=== PATIENT | male | born 1950 | race Caucasian/White ===

== ENCOUNTER → 2016-09-18 | Outpatient (CLI) | payer OTHER ==
--- NOTE | 2016-09-18 16:56 | DX ---
Lumbar spine upright AP and lateral 1244 hours. History: Follow-up fusion. Findings: Comparison to July 09, 2016. Pedicle screws and paraspinal rods are once again seen from L2 through S1 in good position and alignm ent. Posterior interspinous process fusion plate is also noted between L5 and S1. Disk replacement ma terial is in stable position at L2-L3, L4-L5, and at L5-S1. Vertebral body heights are well-maintained. There are no subluxations. Mild intervertebral disk space narrowing is present at T12-L1 and at L1-L2. Laminectomy is identified at L2, L3, and L4 segment lev els. Impression: 1. Stable fusion from L2 through S1 as detailed above. 2. Stable mild disk space narrowing upper lumbar spine.
== END ==
LOC: FIMAGING 12:11
PROVIDERS: ATTEND Physician Assistant Surgical
DX: Z09 Encounter for follow-up examination after completed treatment for conditions other than malignant neoplasm (principal); Z98.1 Arthrodesis status

== ENCOUNTER → 2016-12-24 | Outpatient (CLI) | payer OTHER | LOC: FIMAGING 10:18 | PROVIDERS: ATTEND Physician Assistant Surgical | DX: M47.896 Other spondylosis, lumbar region (principal); Z98.1 Arthrodesis status ==

== ENCOUNTER 2017-03-11 11:32 | Inpatient (IN) | payer OTHER ==
--- NOTE | 2017-03-10 15:59 | GHP ---
[f rep st] PREOP HISTORY AND PHYSICAL DATE OF ADMISSION: 03/11/2017 PROBLEM: Left hip arthritis. HISTORY OF PRESENT ILLNESS: The patient is a 67-year-old man admitted for a left total hip arthropl asty. He has been experiencing progressive left hip pain for about 6 months. He does not have any pain in his right hip. He has discontinued playing tennis because of the pain. He had 2 operations on his spine last year. He has had previous cervical and lumbar fusions. He has had a total of 8 operations on his back. Because of progressive pain in his left hip and limitation of activities an d function, he will undergo a left total hip arthroplasty. PAST MEDICAL HISTORY: Overall, he is in good general health. He is treated for hypertension and el evated cholesterol. He also has some problems with chronic nasal congestion. No history of heart d isease, DVT, hepatitis, or sleep apnea. CURRENT MEDICATIONS: Crestor 40 mg per day, lisinopril 10 mg per day. He uses Singulair for his na belkis congestion. DRUG ALLERGIES: None. METAL ALLERGY: None. LATEX ALLERGY: None. 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 He does not smoke cigar ettes and occasionally drinks alcohol. He is . No history of previous MRSA staph infections . FAMILY HISTORY: Positive for cancer and heart disease. PHYSICAL EXAMINATION: GENERAL: He is an alert, healthy-appearing man. Height 6 feet, weight 180 p ounds. BMI 24.4. EYES: The conjunctivae and sclerae are clear. Pupils are round and reactive. M OUTH: Good oral hygiene. No loose teeth. CHEST: Clear. HEART: Regular rhythm. No murmurs. EX TREMITIES: Pertinent findings are limited to his left hip. He has full hip extension and 95 degree s of flexion. External rotation 20 degrees. Internal rotation 0 degrees. Abduction 20 degrees. IMAGING: His films show advanced degenerative arthritis of the left hip with cartilage space narrow ing and osteophyte formation. He has mild degenerative changes in his right hip. Hardware is prese nt in the lower lumbar spine. IMPRESSION ON ADMISSION: 1. Left hip advanced degenerative arthritis. 2. Right hip mild degenerative arthritis which is not symptomatic. 3. Status post multiple cervical and lumbar spine surgeries with spine fusions. 4. Treatment for elevated cholesterol. 5. Treatment for hypertension. PLAN: He will undergo a left total hip arthroplasty. The surgery has been described to him, includ ing the risks, complications, expectations, and recovery time. I have discussed with him the risk o f dislocation, leg length inequality, infection, and sciatic nerve injury. He understands there is a small chance he could need revision surgery in the future. All his questions have been answered, and he consents to surgery. /[id number]/MODL
[2017-03-11] MEDS ORDERED: POVIDONE-IODINE 20 ML in SODIUM CL IRRIG SOLUTION 500 ML IRR ONE (12:07)
[2017-03-11] MEDS ORDERED: ROPIVACAINE 0.2% 80 MG, EPINEPHrine 0.2 MG, KETOROLAC TROMETHAMINE 30 MG in BAG 0 ML IU ONE (12:07)
[2017-03-11] MEDS ORDERED: TRANEXAMIC ACID 1,720 MG in NS 100 ML IV ONE (12:07)
[2017-03-11] MEDS ORDERED: ceFAZolin 1 GM/5 ML SYR ONE (12:10)
[2017-03-11] MEDS ORDERED: LIDOCAINE 1% 2 ML INJ ONE (13:10)
[2017-03-11] MEDS ORDERED: ceFAZolin 2 GM/DEXTROSE 100 ML IV ONE (13:14)
[2017-03-11] MEDS ORDERED: ACETAMINOPHEN 325 MG TAB PO ONE (13:14)
[2017-03-11] MEDS ORDERED: DEXAMETHASONE 4 MG/ML VIAL IVP ONE (13:14)
[2017-03-11] MEDS ORDERED: FAMOTIDINE 20 MG TAB PO ONE (13:14)
--- NOTE | 2017-03-11 14:11 | PDHPUP ---
History & Physical Update H&P update statement: This history and physical update is based on an assessment of the patient which was completed after admission or registration (within 24 hours), but prior to the surgery/procedure. H&P update: H&P reviewed & patient examined, no change in patient's condition since H&P completed
[2017-03-11] MEDS ORDERED: MIDAZOLAM 2 MG/2 ML VIAL IVP ONE (14:29)
--- NOTE | 2017-03-11 14:43 | PDANEPAE ---
ANE Past Medical History - Cardiovascular History Hx Hypertension: Yes Hx Arrhythmias: No Hx Chest Pain: No Hx Coronary Artery / Peripheral Vascular Disease: Yes Hx CHF / Valvular Disease: No Hx Palpitations: No - Pulmonary History Hx COPD: No Hx Asthma/Reactive Airway Disease: No Hx Recent Upper Respiratory Infection: No Hx Oxygen in Use at Home: No Hx Sleep Apnea: No Sleep Apnea Screening Result - Last Documented: Positive - Neurologic History Hx Cerebrovascular Accident: No Hx Seizures: No Hx Dementia: No - Endocrine History Hx Diabetes: No Hypothyroid: No Hyperthyroid: No Obesity: no - Renal History Hx Renal Disorders: No - Liver History Hx Hepatic Disorders: No - Neurological & Psychiatric Hx Hx Neurological and Psychiatric Disorders: No - Cancer History Hx Cancer: No - Congenital Disorder History Hx Congenital Disorders: No - GI History Hx Gastrointestinal Disorders: No - Other Health History Other Health History: CHRONIC SINUSITIS - Chronic Pain History Chronic Pain: No - Surgical History Prior Surgeries: RT SHLDR SCOPE 02/2014. LUMBAR FUSION 2011. RT SHLDR SCOPE. LT ROTATOR CUFF. LUMBAR LAMINECTOMY 1993. CERVICAL FUSION &2002. RT ACHILLES TENDON REPAIR 2008 x3. EMMA KNEE SCOPE ANE Review of Systems Review of systems is: negative - Exercise capacity METS (RN): 4 METS ANE Patient History - Allergies Allergies/Adverse Reactions: No Known Allergies Allergy (Verified 07/09/16 13:38) - Home Medications Home Medications: Lisinopril [Zestril 10 mg (*)] 10 mg PO DAILY 10/17/11 [Last Taken 03/10/17] Rosuvastatin Calcium [Crestor 40mg (*)] 40 mg PO DAILY 10/17/11 [Last Taken ] Montelukast Sodium [Singulair 10 mg (*)] 10 mg PO DAILY@1800 02/21/14 [Last Taken 03/10/17] - NPO status NPO Since - Liquids (Date): 03/11/17 NPO Since - Liquids (Time): 06:30 NPO Since - Solids (Date): 03/10/17 NPO Since - Solids (Time): 19:00 - Smoking Hx Smoking Status: Never smoked - Family Anes Hx Family Hx Anesthesia Complications: none ANE Labs/Vital Signs - Vital Signs Blood Pressure: 148/77 Heart Rate: 57 Respiratory Rate: 16 O2 Sat (%): 95 Height: 182.88 cm Weight: 86.183 kg ANE Physical Exam - Airway Neck exam: decreased ROM, spinal fusion Mallampati Score: Class 2 Mouth exam: normal dental/mouth exam - Pulmonary Pulmonary: no respiratory distress, no rales or rhonchi, clear to auscultation - Cardiovascular Cardiovascular: bradycardia - ASA Status ASA Status: II ANE Anesthesia Plan Anesthesia Plan: MAC, spinal
[2017-03-11] MEDS ORDERED: ONDANSETRON 4 MG/2 ML VIAL ONE (14:46)
[2017-03-11] MEDS ORDERED: fentaNYL 100 MCG/2 ML INJ ONE ×3 (14:46→17:02)
[2017-03-11] MEDS ORDERED: PROPOFOL/EMULSION 500 MG/50 ML BOTTLE IV ONE (14:46)
[2017-03-11] MEDS ORDERED: LIDOCAINE 2% 5 ML SDV ONE (14:59)
[2017-03-11] MEDS ORDERED: PROMETHAZINE HCL 25 MG/ML INJ IVP PRN ×2 (15:50→17:09)
[2017-03-11] MEDS ORDERED: NALOXONE HCL 0.4 MG/ML INJ IVP PRN ×2 (15:50→17:26)
[2017-03-11] MEDS ORDERED: ONDANSETRON 4 MG/2 ML VIAL IVP PRN ×2 (15:50→17:09)
[2017-03-11] MEDS ORDERED: HYDROmorphONE/DILAUDID 1 MG/ML SYR IVP PRN (15:50)
[2017-03-11] MEDS ORDERED: fentaNYL 100 MCG/2 ML INJ IVP PRN ×2 (15:50)
[2017-03-11] MEDS ORDERED: HYDROCODONE/APAP 5/325 TAB PO PRN (15:50)
[2017-03-11] MEDS ORDERED: D5W LR 500 ML IV PRN (15:50)
[2017-03-11] MEDS ORDERED: ACETAMINOPHEN 500 MG TAB PO PRN (15:50)
[2017-03-11] MEDS ORDERED: OXYCODONE/APAP 5/325 TAB PO PRN (15:50)
[2017-03-11] MEDS ORDERED: KETOROLAC 30 MG/1 ML SDV ONE (16:39)
--- NOTE | 2017-03-11 16:55 | POSTOPPROG ---
Post Op Note Date of Operation: 03/11/17 Surgeon: Jame Okeefe Site Inspector: Wayne Barrera/Alvarado Murdock Anesthesiologist: Silvestre Hurt Anesthesia: GET(General Endotracheal) Post-op Diagnosis: Left hip severe degenerative arthritis Procedure: Left total hip arthroplasty Inf/Abcess present in the surg proc area at time of surgery?: No EBL: 100-500
[2017-03-11] MEDS ORDERED: PHARMACY PAIN CONSULT 1 EA MISC PRN (17:09)
[2017-03-11] MEDS ORDERED: BISACODYL 10 MG SUPP PR PRN (17:09)
[2017-03-11] MEDS ORDERED: CYCLOBENZAPRINE 10 MG TAB PO PRN (17:09)
[2017-03-11] MEDS ORDERED: KETOROLAC 30 MG/1 ML SDV IVP PRN (17:09)
[2017-03-11] MEDS ORDERED: PROMETHAZINE HCL 25 MG SUPPR PR PRN (17:09)
[2017-03-11] MEDS ORDERED: traMADol 50 MG TAB PO PRN (17:09)
[2017-03-11] MEDS ORDERED: POLYETHYLENE GLYCOL 3350 17 GM PKT PO PRN (17:09)
[2017-03-11] MEDS ORDERED: diphenhydrAMINE 25 MG CAP PO PRN (17:09)
[2017-03-11] MEDS ORDERED: MAGNESIUM HYDROXIDE 30 ML UDCUP PO PRN (17:09)
[2017-03-11] MEDS ORDERED: NS 500 ML IV PRN (17:09)
[2017-03-11] MEDS ORDERED: ONDANSETRON DISINTEGRATING 4 MG TAB PO PRN (17:09)
[2017-03-11] MEDS ORDERED: LACTULOSE 20 GM/30 ML UDCUP PO PRN (17:09)
[2017-03-11] MEDS ORDERED: TEMAZEPAM 15 MG CAP PO PRN (17:09)
[2017-03-11] MEDS ORDERED: DIPHENOXYLATE/ATROPINE LOMOTIL 1 TAB PO PRN (17:09)
[2017-03-11] MEDS ORDERED: METOCLOPRAMIDE 10 MG/2 ML VIAL IVP PRN (17:09)
[2017-03-11] MEDS ORDERED: MEPERIDINE 25 MG/ML SYR ONE (17:11)
[2017-03-11] MEDS ORDERED: HYDROmorphONE/DILAUDID 1 MG/ML SYR ONE (17:26)
[2017-03-11] MEDS ORDERED: LABETALOL HCL 50 MG/10 ML SYR IVP PRN (17:26)
--- NOTE | 2017-03-11 17:26 | POSTANESTH ---
Post Anesthetic Evaluation Cardiovascular Status: Tx Hyper/Hypo-tension Respiratory Status: Normal, Stable Level of Consciousness/Mental Status: Can Participate in Eval Pain Control: Inadeq, Add Tx Required Nausea/Vomiting Control: Adequate, Prn Tx Ordered Complications Possibly Related to Anesthesia: None Noted
[2017-03-11] MEDS: HYDROmorphONE/DILAUDID 1 MG/ML SYR IVP PRN ×3 (17:27→17:52)
[2017-03-11] MEDS ORDERED: LR 1,000 ML IV SCH (17:30)
--- NOTE | 2017-03-11 18:19 | GOP ---
[f rep st] OPERATIVE REPORT DATE OF OPERATION: 03/11/2017 SURGEON: Jame Okeefe MD COMPOUND COATING MACHINE OFFBEARER: ALYSON Guthrie CFA ANESTHESIA: General. ANESTHESIOLOGIST: Dr. Silvestre Hurt. PREOPERATIVE DIAGNOSIS: Left hip severe degenerative arthritis. POSTOPERATIVE DIAGNOSIS: Left hip severe degenerative arthritis. PROCEDURE PERFORMED: Left total hip arthroplasty. Ceramic femoral head on highly cross-linked poly ethylene cup liner. FINDINGS: DESCRIPTION OF PROCEDURE: The patient was given 2 g of preoperative IV Ancef within 60 minutes of s urgery. He also received IV tranexamic acid at a dose of 20 mg/kg. He was placed on the operating room table and Dr. Hurt attempted a spinal anesthetic. The patient has had multiple previous lumbar spine surgeries, and the spinal anesthetic was unsuccessful. He was then given general anes thesia. A Govea catheter was not used. He wore a THIAGO stocking and SCD on the nonoperative leg. He was rolled to the right lateral decubitus position. The position was secured with the pegboard tab le attachment. An axillary roll was used, and all pressure points were carefully padded. He had pr evious shoulder problems, and I was careful in how we positioned his shoulders. I was careful to lo ck his pelvis in a rigid vertical position. His perineum was isolated with plastic adhesive drapes. The left hip and left lower extremity were prepped with ChloraPrep. They were draped free using s terile sheets, stockinette, and Ioban plastic adhesive drape. The [employer] time-out was performed to verify the correct surgical side and site, a nd the correct patient identity. The [place] time-out was also performed. I made a 5-inch straight oblique posterolateral hip skin incision. Subcutaneous tissues were sharpl y divided, and hemostasis was obtained using electrocautery. The fascia rohini was identified and spl it along the axis of its fibers. I then curved posteriorly and proximally, and split the fascia of gluteus sara and bluntly split the muscle fibers in line with their orientation. The Charnley se lf-retaining retractor was inserted. His sciatic nerve was located, partially exposed, and protecte d throughout the procedure. The external rotators and the posterior hip capsule were divided as sep arate layers at the base of the femoral neck, tagged, and reflected posteriorly. A smooth 8-inch St einmann pin was inserted vertically in the ilium superior to the acetabulum. An 8-inch drill bit wa s inserted vertically into the greater trochanter and parallel to the first pin. The distance betwe en the 2 was measured for leg length reference. His femoral head was dislocated posteriorly. Very severe degenerative changes were present on the femoral head. His femoral neck was osteotomized at the appropriate level and inclination. I was able to preserve all the posterior capsule and most of the anterior capsule. The remnant of h is badly damaged labrum was excised. I prepared the femur first. This allowed me to tool machine set up operator the amount of natural femoral neck anteversion . This, in turn, allowed me to later determine the correct amount of cup anteversion. He had appro ximately 15 degrees of natural femoral neck anteversion. The canal was opened laterally with a box chisel. I then used the starter reamer on power. I then hand-broached up to size 5. The size 5 br oach was used as a trial stem. I was careful to lateralize adequately. Appropriate retractors were inserted to expose the acetabulum. The acetabulum was reamed sequential ly up to 55 mm. I selected a 56 mm Leonard Tritanium cluster hole hemispherical shell. The initial fixation was not that tight, so I went ahead and deepened the acetabulum another millimeter or 2. I then achieved good fixation. The 56 mm Wharton Tritanium cluster hole shell was tapped securely i nto place in the proper degree of inclination anteversion. I used the remnant of his transverse enrico tabular ligament and other acetabular bony landmarks to help me properly orient the cup. I inserted a single fixation screw through the shell. I also inserted a screw in the metal dome hole plug. At this point, I took intraoperative cross-table AP pelvis x-ray. Leg lengths look good. Position of the cup looks good. I thought that I could probably get 1 size larger femoral component in. I dara tracey went back and broached laterally, and was able get the 6 broach fully seated. I performed a ser ies of trial reductions to determine length and stability. I concluded that the size 6 stem with a 0 mm high offset neck, a 36 mm head and a 0-degree trial liner gave me the proper combination of lala ropriate length and good anterior and posterior stability. The flush or 0-degree Leonard X3 highly cross-linked polyethylene liner was inserted and tapped secu rely into place. The Leonard Accolade 2 stem in size 6 with high offset was inserted, press-fit and was very tight. I did 1 final trial reduction and confirmed that the 0 neck length with a 36 mm he ad was the proper combination. I selected the Wharton Biolox Delta ceramic head with an outside dm meter of 36 mm and a neck length of 0 mm. The head was tapped securely onto the clean trunnion. Th e acetabulum was irrigated, cleaned, and the hip was reduced 1 final time. He had excellent anterio r and posterior stability and appropriate length. Then, 40 mL of the joint anesthetic cocktail was injected into the capsule, the deep musculature, an d the subcutaneous tissues around the skin edges. The joint was thoroughly irrigated 1 final time w ith a dilute Betadine solution. His sciatic nerve was reinspected and looked unharmed. The externa l rotators and the posterior hip capsule were repaired in separate layers with #2 FiberWire sutures through drill holes in the greater trochanter. The fascia rohini was repaired first with a #2 figure- of-eight FiberWire suture, followed by a running #2 barbed Ethicon Stratafix PDO suture. The subcut aneous tissues were closed with a running 0 barbed Ethicon StrataFix Monoderm suture. The skin was closed with a running 3-0 barbed Ethicon Stratafix Monoderm subcuticular suture. The skin edges wer e reapproximated and sealed with Dermabond glue. The wound was covered with a strip of Telfa, and e verything was held in place with a piece of clear plastic Tegaderm. A long-leg THIAGO stocking and SCD were applied to his left lower extremity. He wore a stocking and SC D on the opposite leg during the procedure. An abduction pillow was placed between his knees. He w as awakened from anesthesia and rolled to the supine position on his [employer]. He was taken to PACU in satisfactory condition. There were no recognized intraoperative complications. The ignacio mated blood loss was about 500 mL. He bled more than normal. He bled particularly from the raw bon y surfaces of his acetabulum. The sponge and needle count were correct on 2 occasions. I used a Wharton Tritanium hemispherical press-fit cluster hole acetabular shell with an outside dm meter of 56 mm. The liner was a Leonard X3 0-degree highly cross-linked liner with an inside diamet er of 36 mm. The femoral component was a high offset Leonard Accolade 2 stem in size 6 and press-fi t. The femoral head was a Leonard Biolox Delta ceramic head with a 0 neck length and a 32 mm outsid e diameter. Wayne Barrera and Alvarado Murdock acted as surgical assistants. Their assistance was a medical neces sity for the safe completion of the procedure. /[id number]/MODL
[2017-03-11] MEDS: ACETAMINOPHEN 325 MG TAB PO SCH (18:46)
[2017-03-11] MEDS: ASPIRIN 325 MG TAB PO SCH (19:54)
[2017-03-11] MEDS: SENNOSIDES/DOCUSATE SODIUM TAB PO SCH (19:54)
[2017-03-11] MEDS: FAMOTIDINE 20 MG TAB PO SCH (19:54)
[2017-03-11 20:32] VITALS: RESP 16
[2017-03-11] MEDS: oxyCODONE IR 5 MG TAB PO PRN (21:49)
[2017-03-11] MEDS: TRANEXAMIC ACID 650 MG TAB PO SCH (21:49)
[2017-03-12] MEDS: ACETAMINOPHEN 325 MG TAB PO SCH ×2 (00:05→04:57)
[2017-03-12] MEDS: ceFAZolin 2 GM/DEXTROSE 100 ML IV SCH ×2 (00:07→05:51)
[2017-03-12] MEDS: oxyCODONE IR 5 MG TAB PO PRN ×2 (02:29→08:11)
[2017-03-12] MEDS: TRANEXAMIC ACID 650 MG TAB PO SCH (04:57)
[2017-03-12 05:25] LABS: HEMATOCRIT 29.9 % (40.0-51.0); HEMOGLOBIN 10.1 g/dL (13.7-17.5)
[2017-03-12] MEDS: ASPIRIN 325 MG TAB PO SCH (08:10)
[2017-03-12] MEDS: SENNOSIDES/DOCUSATE SODIUM TAB PO SCH (08:11)
[2017-03-12] MEDS: FAMOTIDINE 20 MG TAB PO SCH (08:11)
[2017-03-12 08:25] VITALS: BP 113/57; PULSE 78; TEMP 99.4; O2SAT 91
[2017-03-12] MEDS ORDERED: FERROUS SULFATE 140 MG TAB.ER PO SCH (09:00)
[2017-03-12] MEDS ORDERED: oxyCODONE IR 5 MG TAB PO PRN (09:06)
--- NOTE | 2017-03-12 09:32 | SOAPPROG ---
SOAP Progress Note Assessment/Plan: Asses afebrile. Awake and alert. He has been walking in the [place]. He has a moderate buttocks hematoma. His dressing is dry. H&H is low but satisfactory. Postop films look excellent. His sciatic nerve is intact. Plan: Physical therapy today. Discharged later today. 03/12/17 09:30 Objective: Vital Signs Temp Pulse Resp BP Pulse Ox 37.4 C 78 16 113/57 L 91 L 03/12/17 08:00 03/12/17 08:00 03/12/17 08:00 03/12/17 08:00 03/12/17 08:00 Laboratory Results 03/12/17 04:23 03/11/17 03/12/17 03/13/17 05:59 05:59 05:59 Intake Total 525 Output Total 275 Balance 250 ICD10 Worksheet Patient Problems: Problems Problem Status Onset Osteoarthritis of left hip Acute Lumbar stenosis Acute
--- NOTE | 2017-03-12 14:46 | GDS ---
[f rep st] DISCHARGE SUMMARY ADMITTING DIAGNOSES: Left hip degenerative arthritis. DISCHARGE DIAGNOSIS: Left hip degenerative arthritis. PROCEDURE PERFORMED: On 03/11/2017, a left total hip arthroplasty. POSTOPERATIVE COMPLICATIONS: None. CONDITION ON DISCHARGE: Improved. DESCRIPTION OF HOSPITAL COURSE: The patient was admitted to the hospital on the morning of surgery. His admission CBC was normal. The same day, under general anesthesia, he underwent a left total h ip arthroplasty. Postoperatively, he was treated with multimodal DVT prophylaxis, including aspirin . On the first postoperative day his hemoglobin and hematocrit were 10.1 and 29.9. [facility] and made good progress with ambulation and stairs. He developed a moderate buttocks h ematoma. There were no other postoperative complications. By the time of discharge, he was afebrile, comfortable and independent walking with a walker partial weightbearing on the left. DISPOSITION: The patient is discharged to his home. DISCHARGE INSTRUCTIONS: He may progress to full weightbearing on the left as tolerated. He will go to outpatient physical therapy next week. He has prescriptions for oxycodone and tramadol for pain control. Continue aspirin 325 mg p.o. daily for 21 days. I will see him back in the office on Mar. Continue THIAGO stockings for 1 week. If there are any problems, he is to call me at [facility] office. /[id number]/MODL
[2017-03-12] MEDS ORDERED: MONTELUKAST SODIUM 10 MG TAB PO SCH (18:00)
[2017-03-13] MEDS ORDERED: LISINOPRIL 10 MG TAB PO SCH (09:00)
[2017-03-13] MEDS ORDERED: ROSUVASTATIN CALCIUM 40 MG TAB PO SCH (09:00)
== END 2017-03-12 11:31 | disposition home or self-care (01) | DRG 470 ==
LOC: F3N 11:32
PROVIDERS: ADMIT Orthopaedic Surgery; ATTEND Orthopaedic Surgery
PROC: 0SRB04Z Replacement of Left Hip Joint with Ceramic on Polyethylene Synthetic Substitute, Open Approach (ICD-10-PCS; principal; 2017-03-11 14:30)
DX: M16.12 Unilateral primary osteoarthritis, left hip (principal); I10 Essential (primary) hypertension; E78.00 Pure hypercholesterolemia, unspecified; Z98.1 Arthrodesis status
CPT/HCPCS: 97116-GP; 97161-GP; 97165-GO; 97530-GP; C1713; G8978-GP-CI; G8979-GP-CI; G8980-GP-CI; G8987-GO-CI; G8988-GO-CI; G8989-GO-CI; J0171; J0690; J1100; J1170; J1885; J2250; J2405; J2704; J2795; J3010

== ENCOUNTER 2017-04-14 10:23 | Emergency (ER) | payer OTHER ==
[2017-04-14] MEDS ORDERED: HYDROmorphONE/DILAUDID 1 MG/ML SYR IVP ONE ×2 (10:44→11:08)
--- NOTE | 2017-04-14 10:45 | EDPHY ---
H & P Stated Complaint: L Hip Pain Time Seen by Provider: 04/14/17 10:43 - Personal History Current Tetanus Diphtheria and Acellular Pertussis (TDAP): Yes Tetanus Vaccine Date: WITHIN - Medical/Surgical History Hx Asthma: No Hx Chronic Respiratory Disease: No Hx Diabetes: No Hx Cardiac Disease: Yes Hx Renal Disease: No Hx Cirrhosis: No Hx Alcoholism: No Hx HIV/AIDS: No Hx Splenectomy or Spleen Trauma: No Other PMH: 8 back surgery, HTN, Hyperlip, L Hip Replacement 2016 - Social History Smoking Status: Never smoked Constitutional: Initial Vital Signs Temperature (C) 36.9 C 04/14/17 10:32 Heart Rate 72 04/14/17 10:32 Respiratory Rate 18 04/14/17 10:32 Blood Pressure 181/100 H 04/14/17 10:32 O2 Sat (%) 99 04/14/17 10:32 O2 Delivery Mode [Procedural Nasal Cannula 7th] O2 Delivery Mode [Post Room Air Procedure 3rd] O2 Delivery Mode [Post Room Air Procedure 2nd] O2 Delivery Mode [Post Room Air Procedure 1st] O2 Delivery Mode [Procedural Bag Valve Mask 6th] O2 Delivery Mode [Procedural Bag Valve Mask 5th] O2 Delivery Mode [Procedural Non-Rebreather Mask 4th] O2 Delivery Mode [Procedural Non-Rebreather Mask 3rd] O2 Delivery Mode [Procedural Non-Rebreather Mask 2nd] O2 Delivery Mode [Procedural Non-Rebreather Mask 1st] O2 Delivery Mode [.Immediate Non-Rebreather Mask Pre-Procedure] O2 Delivery Mode Room Air O2 (L/minute) [Procedural 7th] 6 O2 (L/minute) [Procedural 4th] 15 O2 (L/minute) [Procedural 3rd] 15 O2 (L/minute) [Procedural 2nd] 15 O2 (L/minute) [Procedural 1st] 15 O2 (L/minute) [.Immediate Pre- 15 Procedure] O2 (L/minute) 15 Allergies/Adverse Reactions: No Known Allergies Allergy (Verified 07/09/16 13:38) Home Medications: Medication Instructions Recorded Lisinopril [Zestril 10 mg (*)] 10 mg PO DAILY 10/17/11 Rosuvastatin Calcium [Crestor 40mg 40 mg PO DAILY 10/17/11 (*)] Montelukast Sodium [Singulair 10 10 mg PO DAILY@1800 02/21/14 mg (*)] Ibuprofen [Motrin (*)] 800 mg PO TID PRN 03/11/17 Multivitamin with Minerals 1 each PO DAILY 03/11/17 [Multiple Vitamin] Acetaminophen [Tylenol 325mg (*)] 650 mg PO Q6HRS #0 tab 03/12/17 Medical Decision Making - Diagnostics Imaging: Discussed imaging studies w/ call center recruiter Radiologist, I viewed and interpreted images myself ED Course/Re-evaluation: CHIEF COMPLAINT: Left hip dislocation HISTORY OF PRESENT ILLNESS: The patient is a 67 y/o male who arrives via EMS after a left hip pain and dislocation. He had a hip replacement surgery 5 weeks ago and has been recovering well at home with improving flexibility. Today, he bent over to tie shoe his shoe and his left hip popped out. He had immediate pain at the site and continues to have severe pain here. He denies any trauma or other injuries. Denies weakness, paresthesias, incontinence, or other symptoms. REVIEW OF SYSTEMS: A 10 point review of systems was performed and is negative with the exception of the elements mentioned in the history of present illness. PHYSICAL EXAM: HR, BP, O2 Sat, RR. Temp noted General Appearance: Alert, well hydrated, appropriate, and non-toxic appearing. Head: Atraumatic without scalp tenderness or obvious injury Eyes: Pupils equal, round, reactive to light and accommodation, EOMI, no trauma , no injection. Nose: Atraumatic, no rhinorrhea, clear. Throat: Mucus membranes moist. Neck: Supple Respiratory: No retractions, no distress, no wheezes, and no accessory muscle use. Lungs are clear to auscultation bilaterally. Cardiovascular: Regular rate and rhythm, no murmurs, rubs, or gallops. Bilateral dorsalis pedis and posterior tibial pulses intact. Good capillary refill all extremities. Gastrointestinal: Abdomen is soft, nontender, non-distended, no masses, no rebound, no guarding, no peritoneal signs. Musculoskeletal: Left leg is shortened and externally rotated. Otherwise normal active ROM of all extremities, atraumatic. Neurological: Alert, appropriate, and interactive. The patient has normal DTRs and non-focal cranial nerves, motor, sensory, and cerebellar exam. Skin: No rashes, good turgor, no nodules on palpation. Past medical history: Cardiac disease, hypertension, hyperlipidemia Past surgical history: Left hip replacement 03/12/17, 2 cervical fusions Family history: Noncontributory Social history: at bedside, non-smoker, lives in [place]. 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 Prior medical records reviewed including admission 03/11/17 for hip replacement. DIAGNOSTICS/PROCEDURES/CRITICAL CARE TIME: Pelvis and hip x-rays: posterior left prosthetic hip dislocation. Procedure: Conscious sedation. Indication: Hip dislocation reduction The patient is an appropriate candidate to tolerate procedural sedation. The patient's vitals signs and mental status are appropriate. The risks, benefits and alternatives of the sedation were discussed with the patient. The patient is ASA classification 1. The patient's Mallampati airway score was 1 and the patient did meet the 3-3-2 airway measurements. A time out was completed. The patient was sedated with 50mg IV Ketamine and 90mg IV Propofol. The patient was monitored with continuous pulse oximetry, telemetry monitor and end tidal CO2. There were no complications and no significant hypoxemia. I performed both the sedation and the procedure. The total time I spent at the bedside during the procedural sedation was 30 minutes. The patient was examined after the procedural sedation and has returned to their pre-sedation baseline with normal vital signs and a normal examination. Procedure: Reduction of Dislocated Hip Time-out completed immediately before the procedure. IV established. O2 administered. Placed on pulse oximeter and ETCO2 monitor. Neurovascular exam intact pre-procedure. Given 50mg IV Ketamine for pain and 90mg IV Propofol for sedation. The left hip was not successfully reduced using traction- countertraction. Reassessed post-procedure. Neurovascular status intact with intact sciatic nerve function and lower extremity pulses. Exam did not indicate reduction. The procedure was performed by myself, Dr. Pike, and ANTHONY Feng. Procedure: Rapid sequence intubation. Indication for the procedure was emergent hip reduction requiring paralytic. The patient was preoxygenated with 100% oxygen by face mask. The patient was given the following IV medications: 100mg IV succinylcholine, 50mg IV Propofol, and 50mg IV Ketamine. The patient was orally endotracheally intubated under direct visualization with a 7.5 ETT. Tracheal intubation was confirmed with misting on the tube; breath sounds were auscultated equally bilaterally; appropriate color change with [place] End Tidal CO2 detector. The procedure was performed by myself, Dr. Pike. Procedure: Reduction of Dislocated Hip Time-out completed immediately before the procedure. IV established. O2 administered. Placed on pulse oximeter and ETCO2 monitor. Neurovascular exam intact pre-procedure. Given 50mg IV Ketamine for pain, 50mg IV Propofol for sedation, and 100mg IV succinylcholine as a paralytic. The left hip was successfully reduced using traction-countertraction. Reassessed post-procedure. Neurovascular status intact with intact sciatic nerve function and lower extremity pulses. Exam indicated reduction. Confirmed on x-ray. The procedure was performed by myself, Dr. Pike, and ANTHONY Feng. Post-procedure pelvis x-ray: left hip in proper anatomical position. DIFFERENTIAL DIAGNOSIS: The differential diagnosis for the patient's complaint included but was not limited to posterior hip dislocation, hip fracture, ligamentous injury, contusion, muscular strain, muscular injury. MEDICAL DECISION MAKING: This is a 67 y/o male who is 5 weeks out from a left hip replacement who presents with a shortened and externally rotated left hip after flexing past 90 degrees to tie his shoe this morning. He is neurovascularly intact, but is having significant pain. Plan for x-ray to confirm hip dislocation, pain management, and procedural sedation to reduce hip. X-ray confirms posterior left prosthetic hip dislocation. Plan for procedural sedation with Ketamine and Propofol. See procedure note above. 1135: Procedural sedation initiated. Ketamine and Propofol titrated to effect for total of 50mg IV Ketamine and 90mg IV Propofol 1142: Despite multiple attempts during sedation, we have not been able to successfully reduce his dislocation due to significant muscle spasm. To limit further tissue damage and continuing severe pain, he will require a paralytic to eliminate muscle spasm that is preventing reduction. We will temporarily intubate to manage his airway during administration of succinylcholine. RT paged to assist. 1147: RT at bedside. 1150: Intubation performed successfully with 50mg IV Ketamine, 50mg IV Propofol , and 100mg IV succinylcholine. 1152: Hip reduced successfully with traction and countertraction. Will continue to monitor patient's airway until he returns to baseline. 1157: Patient is breathing on his own and gagging and was extubated without complication. He will continue to receive supplemental O2 until he returns to baseline. 1158: Patient is now awake and alert and breathing spontaneously. X-ray confirms successful reduction. 1205: Patient is alert and oriented. His pain has been successfully managed after reduction. 1220: Patient will be discharged with standard hip dislocation care instructions and precautions. He understands he needs to follow up with his orthopedist. He is comfortable with plan for discharge. - Data Points Medications Given: Discontinued Medications Hydromorphone HCl (Dilaudid) 1 mg IVP EDNOW ONE Stop: 04/14/17 10:45 Last Admin: 04/14/17 10:47 Dose: 1 mg Hydromorphone HCl (Dilaudid) 1 mg IVP EDNOW ONE Stop: 04/14/17 11:09 Last Admin: 04/14/17 11:12 Dose: 1 mg Sodium Chloride (Ns) 1,000 mls @ 0 mls/hr IV ONCE ONE PRN Reason: Wide Open Stop: 04/14/17 11:09 Last Admin: 04/14/17 11:14 Dose: 1,000 mls Ketamine HCl (Ketamine) 100 mg IVP EDNOW ONE Stop: 04/14/17 12:48 Last Admin: 04/14/17 11:51 Dose: 100 mg Propofol (Diprivan) 140 mg IVP EDNOW ONE Stop: 04/14/17 12:47 Last Admin: 04/14/17 12:50 Dose: 140 mg Succinylcholine Chloride (Quelicin) 100 mg IVP EDNOW ONE Stop: 04/14/17 12:48 Last Admin: 04/14/17 11:51 Dose: 100 mg Departure - Departure Disposition: Home, Routine, Self-Care Clinical Impression: Hip dislocation, left Condition: Fair Instructions: Hip Dislocation (ED) Additional Instructions: 1. Do not bend over more than 90 degrees to reduce your risk of dislocating your hip again. Be cautious when bending over, sitting down, or other flexions. 2. Follow up with Dr. Okeefe, orthopedist in the next 3-5 days. 3. Return to the ED if you experience weakness, paresthesias, fever, or other worsening of symptoms. Referrals: Omar Fagan MD [Primary Care Provider] - As per Instructions Jame Okeefe MD [Medical Doctor] - As per Instructions Report Scribed for: Lamont Pike Report Scribed by: Jessica Fregoso Date of Report: 04/14/17 Time of Report: 12:03
[2017-04-14] MEDS ORDERED: NS 1,000 ML IV ONE (11:08)
[2017-04-14] MEDS ORDERED: KETAMINE 100 MG/10 ML SYR ONE (11:27)
[2017-04-14] MEDS ORDERED: PROPOFOL 200 MG/20 ML VIAL ONE (11:27)
[2017-04-14] MEDS ORDERED: PROPOFOL 200 MG/20 ML VIAL IVP ONE (12:46)
[2017-04-14] MEDS ORDERED: KETAMINE 100 MG/10 ML SYR IVP ONE (12:47)
[2017-04-14] MEDS ORDERED: SUCCINYLCHOLINE CHLORIDE 200 MG/10 ML VIAL IVP ONE (12:47)
[2017-04-14 13:01] VITALS: BP 121/55; PULSE 68; RESP 16; TEMP 97.7; O2SAT 93
[2017-04-14] MEDS ORDERED: SUCCINYLCHOLINE CHLORIDE*ANESTHESIA ONLY*200 MG/10 ML SYR IVP ONE (13:38)
== END 2017-04-14 12:59 | disposition home or self-care (01) ==
LOC: EDUNIT#
DX: T84.021A Dislocation of internal left hip prosthesis, initial encounter (principal); I10 Essential (primary) hypertension; Y82.8 Other medical devices associated with adverse incidents
CPT/HCPCS: 72170; 96361; 96374; J0330; J1170; J2704

== ENCOUNTER 2017-06-04 16:20 | Emergency (ER) | payer OTHER ==
[2017-06-04] MEDS ORDERED: fentaNYL 100 MCG/2 ML INJ ONE (16:23)
[2017-06-04] MEDS ORDERED: ONDANSETRON 4 MG/2 ML VIAL ONE (16:23)
[2017-06-04] MEDS ORDERED: fentaNYL 100 MCG/2 ML INJ IVP ONE (16:26)
[2017-06-04] MEDS ORDERED: ONDANSETRON 4 MG/2 ML VIAL IVP ONE (16:26)
[2017-06-04 16:29] VITALS: RESP 18; TEMP 98.1
[2017-06-04] MEDS ORDERED: MIDAZOLAM 2 MG/2 ML VIAL IVP ONE (16:43)
--- NOTE | 2017-06-04 16:48 | EDPHY ---
H & P Stated Complaint: left hip pain Time Seen by Provider: 06/04/17 16:35 HPI/ROS: CHIEF COMPLAINT: Left hip pain HISTORY OF PRESENT ILLNESS: The patient is a 67-year-old man who comes to the emergency department complaining of a left hip dislocation. He states that he had a left hip replacement in January of this year. He dislocated his hip in February of this year after he twisted it a certain way. It was reduced in the ER at that time. He states that today he was kneeling at the bookshelf and twisted and had a sudden pop in his left hip. He was told not to make that movement. The patient is not in any pain unless he is moved. REVIEW OF SYSTEMS: Constitutional: denies: chills, fever, recent illness, recent injury EENTM: denies: blurred vision, double vision, nose congestion Respiratory: denies: cough, shortness of breath Cardiac: denies: chest pain, irregular heart rate, lightheadedness, palpitations Gastrointestinal/Abdominal: denies: abdominal pain, diarrhea, nausea, vomiting, blood streaked stools Genitourinary: denies: dysuria, frequency, hematuria, pain Musculoskeletal: See HPI Skin: denies: lesions, rash, jaundice, bruising Neurological: denies: headache, numbness, paresthesia, tingling, dizziness, weakness Hematologic/Lymphatic: denies: blood clots, easy bleeding, easy bruising Immunologic/allergic: denies: HIV/AIDS, transplant EXAM: GENERAL: Well-appearing, well-nourished and in no acute distress. HEAD: Atraumatic, normocephalic. EYES: Pupils equal round and reactive to light, extraocular movements intact, sclera anicteric, conjunctiva are normal. ENT: TMs normal, nares patent, oropharynx clear without exudates. Moist mucous membranes. NECK: Normal range of motion, supple without lymphadenopathy or JVD. LUNGS: Breath sounds clear to auscultation bilaterally and equal. No wheezes rales or rhonchi. HEART: Regular rate and rhythm without murmurs, rubs or gallops. ABDOMEN: Soft, nontender, normoactive bowel sounds. No guarding, no rebound. No masses appreciated. BACK: No CVA tenderness, no spinal tenderness, step-offs or deformities EXTREMITIES: Left hip pain, leg held in flexion. NEUROLOGICAL: Cranial nerves II through XII grossly intact. Normal speech, normal gait. 5/5 strength, normal movement in all extremities, normal sensation PSYCH: Normal mood, normal affect. SKIN: Warm, dry, normal turgor, no visible rashes or lesions. Source: Patient, Family - Personal History Current Tetanus Diphtheria and Acellular Pertussis (TDAP): Yes Tetanus Vaccine Date: WITHIN 10 - Medical/Surgical History Hx Asthma: No Hx Chronic Respiratory Disease: No Hx Diabetes: No Hx Cardiac Disease: Yes Hx Renal Disease: No Hx Cirrhosis: No Hx Alcoholism: No Hx HIV/AIDS: No Hx Splenectomy or Spleen Trauma: No Other PMH: 8 back surgery, HTN, Hyperlip, L Hip Replacement 2016 - Family History Significant Family History: No pertinent family hx - Social History Smoking Status: Never smoked Alcohol Use: Sober Drug Use: None Constitutional: Initial Vital Signs Temperature (C) 36.7 C 06/04/17 16:28 Heart Rate 66 06/04/17 16:28 Respiratory Rate 18 06/04/17 16:28 Blood Pressure 143/89 H 06/04/17 16:28 O2 Sat (%) 95 06/04/17 16:28 O2 Delivery Mode [Post Room Air Procedure 2nd] O2 Delivery Mode [Post Nasal Cannula Procedure 1st] O2 Delivery Mode [Procedural Non-Rebreather Mask 2nd] O2 Delivery Mode [Procedural Non-Rebreather Mask 1st] O2 Delivery Mode [.Immediate Non-Rebreather Mask Pre-Procedure] O2 Delivery Mode Room Air O2 (L/minute) [Post Procedure 2 1st] O2 (L/minute) [Procedural 2nd] 10 O2 (L/minute) [Procedural 1st] 10 O2 (L/minute) [.Immediate Pre- 10 Procedure] Allergies/Adverse Reactions: No Known Allergies Allergy (Verified 06/04/17 16:27) Home Medications: Medication Instructions Recorded Lisinopril [Zestril 10 mg (*)] 10 mg PO DAILY 10/17/11 Rosuvastatin Calcium [Crestor 40mg 40 mg PO DAILY 10/17/11 (*)] Montelukast Sodium [Singulair 10 10 mg PO DAILY@1800 02/21/14 mg (*)] Ibuprofen [Motrin (*)] 800 mg PO TID PRN 03/11/17 Multivitamin with Minerals 1 each PO DAILY 03/11/17 [Multiple Vitamin] Acetaminophen [Tylenol 325mg (*)] 650 mg PO Q6HRS #0 tab 03/12/17 Medical Decision Making - Diagnostics Imaging Results: Imaging Impressions Hip X-Ray 06/04/17 16:30 Impression: Left hip dislocation. Pelvis X-Ray 06/04/17 17:23 Impression: Good anatomic reduction of left total hip arthroplasty. Imaging: Discussed imaging studies w/ sanitation technician Radiologist Procedures: Procedure: Procedural sedation. Indication: Hip reduction. A pre-sedation evaluation was completed on the patient just prior to the procedure. Patient is an appropriate candidate for procedural sedation with a normal 3-3-2 rule assessment and a Mallampati airway score of class 1. The risks of the sedation were discussed including but not limited to dysrhythmia, need for airway intervention or general anesthesia, disability, ; and verbal consent obtained. A timeout was observed and patient's identity confirmed. The patient was sedated with ketamine and propofol. The patient was monitored with continuous pulse oximetry, capnography, and environmental field services technician. There were no complications and no significant hypoxemia. I remained at the bedside for the sedation. The total time I spent in the procedural sedation was 16 minutes. The patient's left hip was reduced with great effort initially through traction and counter-traction then with knee at 90 degrees and axial traction upward with pressure on the thigh. Patient tolerated the procedure well. Postreduction x-rays confirmed good placement. ED Course/Re-evaluation: Patient tolerated the procedure well. He is grateful. He and his are eager to go home and will resume wearing the ER abductor pillow and being cautious. 6:15 p.m. the patient is ambulating without difficulty. Differential Diagnosis: Partial list of the Differential diagnosis considered include but were not limited to; hip dislocation, and although unlikely based on the history and physical exam, I also considered fracture, nerve injury, vascular injury. I discussed these differential diagnoses and the plan with the patient as well as the usual and expected course. The patient understands that the diagnosis is provisional and that in medicine we are not always correct and that further workup is often warranted. Usual and customary warnings were given. All of the patient's questions were answered. The patient was instructed to return to the emergency department should the symptoms at all worsen or return, otherwise to followup with the physician as we discussed. - Data Points Medications Given: Discontinued Medications Fentanyl (Sublimaze) 100 mcg IVP EDNOW ONE Stop: 06/04/17 16:27 Last Admin: 06/04/17 16:31 Dose: 100 mcg Ketamine HCl (Ketamine) 100 mg IVP EDNOW ONE Stop: 06/04/17 17:33 Last Admin: 06/04/17 17:15 Dose: 100 mg Midazolam HCl (Versed) 2 mg IVP EDNOW ONE Stop: 06/04/17 16:44 Last Admin: 06/04/17 16:53 Dose: 2 mg Ondansetron HCl (Zofran) 4 mg IVP EDNOW ONE Stop: 06/04/17 16:27 Last Admin: 06/04/17 16:31 Dose: 4 mg Propofol (Diprivan) 60 mg IVP EDNOW ONE Stop: 06/04/17 17:33 Last Admin: 06/04/17 17:15 Dose: 60 mg Departure - Departure Disposition: Home, Routine, Self-Care Clinical Impression: Hip dislocation, left Qualifiers: Encounter type: initial encounter Qualified Code(s): S73.005A - Unspecified dislocation of left hip, initial encounter Condition: Fair Instructions: Hip Dislocation (ED) Referrals: Omar Fagan MD [Primary Care Provider] - As per Instructions
[2017-06-04] MEDS ORDERED: KETAMINE 100 MG/10 ML SYR ONE ×2 (16:52→17:08)
[2017-06-04] MEDS ORDERED: PROPOFOL 200 MG/20 ML VIAL ONE (16:52)
[2017-06-04] MEDS ORDERED: PROPOFOL 200 MG/20 ML VIAL IVP ONE (17:32)
[2017-06-04] MEDS ORDERED: KETAMINE 100 MG/10 ML SYR IVP ONE (17:32)
[2017-06-04 18:13] VITALS: BP 145/73
[2017-06-04 18:24] VITALS: PULSE 77; O2SAT 95
== END 2017-06-04 18:22 | disposition home or self-care (01) ==
LOC: EDUNIT#
PROC: 0SSBXZZ Reposition Left Hip Joint, External Approach (ICD-10-PCS; principal; 2017-06-04)
DX: T84.021A Dislocation of internal left hip prosthesis, initial encounter (principal); I10 Essential (primary) hypertension; X50.9XXA Other and unspecified overexertion or strenuous movements or postures, initial encounter; Y82.8 Other medical devices associated with adverse incidents
CPT/HCPCS: 27265; 72170; 73502; 96374; 99152; 99285; J2250; J2405; J2704; J3010

== ENCOUNTER → 2017-08-20 | Outpatient (CLI) | payer OTHER | LOC: FIMAGING 09:32 | PROVIDERS: ATTEND Neurological Surgery | DX: Z09 Encounter for follow-up examination after completed treatment for conditions other than malignant neoplasm (principal); Z98.1 Arthrodesis status ==

== ENCOUNTER 2017-12-18 05:48 | Inpatient (IN) | payer OTHER ==
[2017-12-18] MEDS ORDERED: ceFAZolin 2 GM/SWFI 2 GM/20 ML SYR IVP ONE (06:22)
[2017-12-18] MEDS ORDERED: ACETAMINOPHEN 500 MG TAB PO ONE (06:22)
[2017-12-18] MEDS ORDERED: GABAPENTIN 300 MG CAP PO ONE (06:22)
[2017-12-18] MEDS ORDERED: LR 1,000 ML IV ONE (06:26)
--- NOTE | 2017-12-18 06:45 | PDANEPAE ---
ANE History of Present Illness C4-5 ACDF ANE Past Medical History - Cardiovascular History Hx Hypertension: Yes Hx Arrhythmias: No Hx Chest Pain: No Hx Coronary Artery / Peripheral Vascular Disease: No Hx CHF / Valvular Disease: No Hx Palpitations: No - Pulmonary History Hx COPD: No Hx Asthma/Reactive Airway Disease: Yes Hx Recent Upper Respiratory Infection: No Hx Oxygen in Use at Home: No Hx Sleep Apnea: No Sleep Apnea Screening Result - Last Documented: Positive Pulmonary History Comment: constant sinus issues on abx currently for another 10days - Neurologic History Hx Cerebrovascular Accident: No Hx Seizures: No Hx Dementia: No - Endocrine History Hx Diabetes: No - Renal History Hx Renal Disorders: No - Liver History Hx Hepatic Disorders: No - Neurological & Psychiatric Hx Hx Neurological and Psychiatric Disorders: Yes Neurological / Psychiatric History Comment: numbness and pain to arms - Cancer History Hx Cancer: No - Congenital Disorder History Hx Congenital Disorders: No - GI History Hx Gastrointestinal Disorders: No - Other Health History Other Health History: chronic sinusitus. currently on steroids per Dr Mora - Chronic Pain History Chronic Pain: No - Surgical History Prior Surgeries: RT SHLDR SCOPE 02/2014. LUMBAR FUSION 2011. RT SHLDR SCOPE. LT ROTATOR CUFF. LUMBAR LAMINECTOMY 1993. CERVICAL FUSION &2003. RT ACHILLES TENDON REPAIR 2008 x3. EMMA KNEE SCOPE. 2016 2 lumbar fusions. L hip replacement ANE Review of Systems Review of systems is: negative Review of Systems: - Exercise capacity METS (RN): 5 METS ANE Patient History - Allergies Allergies/Adverse Reactions: No Known Allergies Allergy (Verified 12/18/17 07:02) - Home Medications Home medications: home medication list seen and reviewed Home Medications: Lisinopril [Zestril 10 mg (*)] 10/17/11 [Last Taken 12/16/17] Rosuvastatin Calcium [Crestor 40mg (*)] 10/17/11 [Last Taken 12/17/17] Montelukast Sodium [Singulair 10 mg (*)] 02/21/14 [Last Taken 12/16/17] Ibuprofen [Motrin (*)] 03/11/17 [Last Taken 12/04/17] Multivitamin with Minerals [Multiple Vitamin] 03/11/17 [Last Taken 12/16/17] Acetaminophen [Tylenol 325mg (*)] 12/15/17 [Last Taken 12/11/17] - NPO status NPO Since - Liquids (Date): 12/17/17 NPO Since - Liquids (Time): 18:00 NPO Since - Solids (Date): 12/17/17 NPO Since - Solids (Time): 18:00 - Anes Hx Anes Hx: no prior problems - Smoking Hx Smoking Status: Never smoked - Family Anes Hx Family Hx Anesthesia Complications: none ANE Labs/Vital Signs - Labs Result Diagrams: 12/18/17 06:45 - Vital Signs Blood Pressure: 138/82 Heart Rate: 72 Respiratory Rate: 16 O2 Sat (%): 92 Height: 182.88 cm Weight: 86.183 kg ANE Physical Exam - Airway Neck exam: decreased ROM, spinal fusion Mallampati Score: Class 1 Mouth exam: normal dental/mouth exam - Pulmonary Pulmonary: no respiratory distress - Cardiovascular Cardiovascular: regular rate and rhythym - ASA Status ASA Status: II ANE Anesthesia Plan Anesthesia Plan: general endotracheal anesthesia Lines/Monitors: additional IV Specialized Airway: video laryngoscope
[2017-12-18] MEDS ORDERED: THROMBIN (BOVINE) 5,000 UNIT VIAL TP ONE (06:46)
[2017-12-18] MEDS ORDERED: BUPIVACAINE 0.25% 30 ML SDV ONE (06:46)
[2017-12-18] MEDS ORDERED: BACITRACIN 50,000 UNITS/10 ML SYR IRR ONE (06:48)
[2017-12-18] MEDS ORDERED: CHLORHEXIDINE GLUC HIBICLENS 118 ML BTL TP ONE (06:50)
[2017-12-18] MEDS ORDERED: PROPOFOL 200 MG/20 ML VIAL ONE (07:00)
[2017-12-18] MEDS ORDERED: REMIFENTANIL HCL 1 MG VIAL ONE (07:00)
[2017-12-18] MEDS ORDERED: fentaNYL 100 MCG/2 ML INJ ONE (07:00)
[2017-12-18] MEDS ORDERED: PROPOFOL/EMULSION 500 MG/50 ML BOTTLE IV ONE (07:00)
[2017-12-18 07:12] LABS: PLATELET COUNT 257 10^3/uL (150-400)
[2017-12-18] MEDS ORDERED: ROCURONIUM 50 MG/5 ML VIAL ONE (07:39)
[2017-12-18] MEDS ORDERED: DEXAMETHASONE 4 MG/ML VIAL ONE (07:39)
[2017-12-18] MEDS ORDERED: LIDOCAINE 2% 5 ML SDV ONE (07:39)
[2017-12-18] MEDS ORDERED: ONDANSETRON 4 MG/2 ML VIAL ONE (07:39)
[2017-12-18] MEDS ORDERED: HYDROmorphONE/DILAUDID 2 MG/ML INJ ONE ×2 (08:24→09:52)
--- NOTE | 2017-12-18 08:27 | POSTANESTH ---
Post Anesthetic Evaluation Cardiovascular Status: Normal, Stable Respiratory Status: Normal, Stable Level of Consciousness/Mental Status: Can Participate in Eval Pain Control: Adequate, Prn Tx Ordered Nausea/Vomiting Control: Adequate, Prn Tx Ordered Complications Possibly Related to Anesthesia: None Noted
[2017-12-18] MEDS ORDERED: PROMETHAZINE HCL 25 MG/ML INJ IVP PRN (08:58)
[2017-12-18] MEDS ORDERED: LR 500 ML IV PRN (08:58)
[2017-12-18] MEDS ORDERED: fentaNYL 100 MCG/2 ML INJ IVP PRN (08:58)
[2017-12-18] MEDS ORDERED: ALBUTEROL 3 ML DEYVIAL IH PRN (08:58)
[2017-12-18] MEDS ORDERED: oxyCODONE IR 5 MG TAB PO PRN ×2 (08:58→09:12)
[2017-12-18] MEDS ORDERED: NALOXONE HCL 0.4 MG/ML INJ IVP PRN (08:58)
[2017-12-18] MEDS ORDERED: ONDANSETRON 4 MG/2 ML VIAL IVP PRN ×2 (08:58→09:12)
[2017-12-18] MEDS ORDERED: ACETAMINOPHEN 500 MG TAB PO PRN (08:58)
[2017-12-18] MEDS ORDERED: LABETALOL HCL 5 MG/ML 20 ML MDV IVP PRN (08:58)
[2017-12-18] MEDS ORDERED: HYDROCODONE/APAP 5/325 TAB PO PRN (08:58)
[2017-12-18] MEDS ORDERED: LACTULOSE 20 GM/30 ML UDCUP PO PRN (09:12)
[2017-12-18] MEDS ORDERED: ONDANSETRON DISINTEGRATING 4 MG TAB PO PRN (09:12)
[2017-12-18] MEDS ORDERED: BISACODYL 10 MG SUPP PR PRN (09:12)
[2017-12-18] MEDS ORDERED: diphenhydrAMINE 25 MG CAP PO PRN (09:12)
[2017-12-18] MEDS ORDERED: MAGNESIUM HYDROXIDE 30 ML UDCUP PO PRN (09:12)
[2017-12-18] MEDS ORDERED: NS W/ 20 KCl/L 1,000 ML IV SCH (09:15)
--- NOTE | 2017-12-18 09:16 | SOAPPROG ---
SOAP Progress Note Assessment/Plan: Assessment: 67 yo M sp C4/5 ACDF Plan: stable to 3N Michelle to fit hard collar please call with neuro changes 12/18/17 09:15 Subjective: + NECK PAIN, NO ARM PAIN Objective: Vital Signs Temp Pulse Resp BP Pulse Ox 36.9 C 72 16 138/82 H 92 12/18/17 06:30 12/18/17 07:13 12/18/17 07:13 12/18/17 07:13 12/18/17 07:13 Laboratory Results 12/18/17 06:45 awake, alert PERRL, EOMI no facial droop CHUN x 4 + light touch ICD10 Worksheet Patient Problems: Problems Problem Status Onset Lumbar stenosis Acute Osteoarthritis of left hip Acute
--- NOTE | 2017-12-18 09:38 | GOP ---
[f rep st] OPERATIVE REPORT DATE OF OPERATION: 12/18/2017 SURGEON: Steven Stevenson MD NEUROSURGEON: Steven Stevenson MD APPRAISAL MANAGER: ALMAZ Pope. ANESTHESIA: General endotracheal. 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 PROCEDURE PERFORMED: Exploration of spinal fusion at C5-6 and C6-7 with complete C4-5 anterior cervi deena diskectomy and arthrodesis with a 10 mm structural PEEK interbody spacer and local autograft. Pl acement of a 23 mm LnK CastleLoc-P anterior cervical plate at C4-5. Use of intraoperative microscopy and fluoroscopy. FINDINGS: ESTIMATED BLOOD LOSS: Trace. INDICATIONS: The patient is a 67-year-old man with progressive myelopathic symptoms and intractable burning pain in his arms and hands secondary to adjacent level degeneration at the C4-5 level and kyp hosis with spinal cord compression. He presents now for surgical decompression, stabilization and ex ploration of the adjacent level fusion. DESCRIPTION OF PROCEDURE: After informed consent was obtained, patient was taken to the operating ro om and placed in the supine position with the head in the halter retractor system. The anterior cerv ical region was prepped and draped in a sterile fashion. After fluoroscopic localization of the paige ect level, the subcutaneous and intramuscular tissues were infiltrated with local anesthesia. A hori zontal incision was then created at the C4-5 interspace in a skin crease. This was carried through t he platysmal layer using monopolar electrocautery and carried in the avascular plane between the ster nocleidomastoid and carotid sheath laterally and the strap muscles, trachea, and esophagus medially d own to the prevertebral fascia, which was carefully incised with Metzenbaum scissors. The C4-5 inter space was identified and re-verified using intraoperative fluoroscopy. The C5-6 and C6-7 interspaces were explored and inspected and noted to be solid. The Florentin distraction pins were inserted across the C4-5 interspace and a complete diskectomy was performed with removal of the anteriorly protrudin g osteophytes and posteriorly protruding osteophytes, which were harvested for local autograft. The diskectomy was performed and the posterior longitudinal ligament were removed. Bilateral foraminotom ies were performed. There was a little bit of irritation as documented in neuro monitoring on the le ft when performing the foraminotomy so I was very careful not to be too aggressive there. The increa sed signal then stopped. The wound was then copiously irrigated and the osteophytes undercut rostral ly and caudally at the interspace. Following adequate decompression and copious irrigation, meticulo us hemostasis of the remaining endplates were carefully prepared and an appropriately sized 10 mm str uctural PEEK interbody spacer packed with local autograft, and center was placed in the interspace un joao fluoroscopic image guidance. The distraction was removed and appropriately sized 23 mm CastleLoc -P LnK anterior cervical plate was then placed and secured with self-drilling screws and again under fluoroscopic image guidance. Following re-verification of good position of the plate screws and inte rbody spacer using biplanar fluoroscopy, their locking mechanisms were engaged. A drain was placed. The subcutaneous and intramuscular tissues were re-infiltrated with local anesthesia. The wound was closed in a layered fashion using interrupted Vicryl sutures followed by Steri-Strips on the skin. COMPLICATIONS: None. DISPOSITION: The patient is currently in the process of being repositioned for extubation. /[id number]/MODL
[2017-12-18] MEDS: HYDROmorphONE/DILAUDID 2 MG/ML INJ IVP PRN ×3 (09:56→10:25)
[2017-12-18] MEDS ORDERED: oxyCODONE IR 5 MG TAB ONE (10:31)
[2017-12-18] MEDS: METHOCARBAMOL 750 MG TAB PO PRN ×2 (12:27→15:49)
[2017-12-18] MEDS ORDERED: GABAPENTIN 300 MG CAP PO SCH (14:00)
[2017-12-18] MEDS ORDERED: ACETAMINOPHEN 500 MG TAB PO SCH (14:00)
[2017-12-18 14:47] VITALS: BP 141/74
[2017-12-18] MEDS ORDERED: ceFAZolin 2 GM/SWFI 2 GM/20 ML SYR IVP SCH (15:00)
[2017-12-18] MEDS ORDERED: POLYETHYLENE GLYCOL 3350 17 GM PKT PO SCH (16:00)
[2017-12-18] MEDS ORDERED: SENNOSIDES/DOCUSATE SODIUM TAB PO SCH (21:00)
[2017-12-18] MEDS ORDERED: FAMOTIDINE 20 MG TAB PO SCH (21:00)
--- NOTE | 2017-12-19 14:18 | PDMN ---
Medical Necessity Medical necessity: IP surgery per [facility] for cpt 52831 exploration of fusion
[2017-12-21] MEDS ORDERED: ENOXAPARIN 40 MG/0.4 ML SYR SC SCH (09:00)
== END 2017-12-18 15:59 | disposition home or self-care (01) | DRG 472 ==
LOC: F3N 05:48 → OBSVTOIN 09:12 → F3N 11:24
PROVIDERS: ADMIT Neurological Surgery; ATTEND Neurological Surgery
PROC: 0RG10A0 Fusion of Cervical Vertebral Joint with Interbody Fusion Device, Anterior Approach, Anterior Column, Open Approach (ICD-10-PCS; principal; 2017-12-18 07:15)
PROC: 0RT30ZZ Resection of Cervical Vertebral Disc, Open Approach (ICD-10-PCS; principal; 2017-12-18 07:15)
PROC: 00NW0ZZ Release Cervical Spinal Cord, Open Approach (ICD-10-PCS; principal; 2017-12-18 07:15)
PROC: 4A1004G Monitoring of Central Nervous Electrical Activity, Intraoperative, Open Approach (ICD-10-PCS; principal; 2017-12-18 07:15)
DX: M48.02 Spinal stenosis, cervical region (principal); M47.12 Other spondylosis with myelopathy, cervical region; M50.321 Other cervical disc degeneration at C4-C5 level; M40.202 Unspecified kyphosis, cervical region; I10 Essential (primary) hypertension; Z98.1 Arthrodesis status
CPT/HCPCS: C1713; J0171; J0690; J1100; J1170; J2405; J2704; J3010

== ENCOUNTER → 2017-12-26 | Outpatient (CLI) | payer OTHER | LOC: FIMAGING 16:23 | PROVIDERS: ATTEND Physician Assistant Surgical | DX: R20.2 Paresthesia of skin (principal); M79.9 Soft tissue disorder, unspecified; Z98.1 Arthrodesis status; Z98.890 Other specified postprocedural states ==

== ENCOUNTER → 2018-04-08 | Outpatient (CLI) | payer OTHER | LOC: FIMAGING 10:35 | PROVIDERS: ATTEND Physician Assistant Surgical | DX: Z98.1 Arthrodesis status (principal) ==

== ENCOUNTER → 2018-12-29 | Outpatient (CLI) | payer OTHER | LOC: FIMAGING 12:29 | PROVIDERS: ATTEND Physician Assistant Surgical | DX: Z98.1 Arthrodesis status (principal) ==